=== PATIENT | female | born 1995 | race Caucasian/White ===

== ENCOUNTER 2020-06-12 19:58 | Emergency (ER) | payer BC, SELFPAY ==
--- NOTE | ~2020-06-12 | CT_ITS ---
EXAMINATION: CT BRAIN W/O DATE: 06/12/2020 21:01 INDICATION: Left-sided weakness and sensory deficit TECHNIQUE: Computed tomography (CT) of the head was performed without intravenous contrast. The dose- length product was 529.67 mGy-cm. The mA was adjusted according to patient size. Iterative reconstruc tion technique was employed. COMPARISON: No prior studies for comparison. FINDINGS: Normal brain parenchymal volume for age. Normal amado-white differentiation. No acute intrac ranial hemorrhage, infarction, mass or mass effect. No ventriculomegaly or midline shift. Midline sagittal images demonstrate a normal corpus callosum, c raniovertebral junction and sella turcica. Basilar cisterns are patent. Cerebellar tonsils extend bel ow the foramen magnum, incompletely visualized. Consider Chiari-type 1 malformation. Paranasal sinuses and mastoids are pneumatized. No depressed skull fractures. IMPRESSION: 1. No acute intracranial abnormality. 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 Recommend correlation with MRI. Reviewed, dictated and finalized at location A. ITY ASSURANCE TECH
[2020-06-12 20:00] VITALS: BP 151/115; PULSE 98; RESP 18; TEMP 36.6; O2SAT 98
--- NOTE | 2020-06-12 20:27 | ED.NEUROSD ---
HPI - Neuro Symptoms/Deficit General Chief Complaint: Weakness Stated Complaint: left side numbness Time Seen by Provider: 06/12/20 20:28 Source: patient Mode of arrival: ambulatory Limitations: no limitations History of Present Illness HPI Narrative: previously well 24-year-old woman comes in today complaining of a occipital headache and an episode of left-sided numbness that started after dinner this evening. She states that she felt the numbness 1st in her hand and then in her left arm, leg, side and left side of her face. She states her symptoms have resolved however she feels some heaviness in her left arm. Patient states that she also felt like something was stuck in her throat at dinner and had a itchy rash on her chest afterward. She went home and took a Benadryl as she had had a similar rash and throat symptoms after eating at that restaurant a month ago. She denies any chest pain, shortness of breath, nausea, vomiting, recent illness, neck pain, weakness, or head trauma. She has had no recent drug or alcohol exposure. She has no history of hypertension, seizures, migraines, or CVA. She takes OCPs for control. Onset (ago): hour(s) (1) Location: left face, left arm and left leg History of same: Yes Severity: moderate Quality: numb and other ( resolved) Relieving factors: none Exacerbating factors: none Context: gradual onset Associated symptoms: denies other symptoms Treatments Prior to Arrival: none Related Data Home Medications Medication Instructions Recorded Confirmed No Home Medications 06/12/20 06/12/20 Allergies Allergy/AdvReac Type Severity Reaction Status Date / Time No Known Allergies Allergy Verified 06/12/20 20:18 Review of Systems Constitutional: Constitutional: Denies chills, Denies fever(s) and Denies weakness Eyes: Eyes: Reports change in vision ( blurred vision which has resolved) and Denies photophobia ENT: Denies dysphagia, Denies nasal congestion and Denies sore throat Cardiovascular: Cardiovascular: Denies chest pain and Denies radiating jaw, neck or arm pain Respiratory: Respiratory: Denies cough, Denies dyspnea and Denies wheezing Gastrointestinal: Gastrointestinal: Denies abdominal pain, Denies nausea and Denies vomiting Genitourinary: Genitourinary: Denies nocturia and Denies dysuria Musculoskeletal: Musculoskeletal: Denies arthralgias and Denies joint swelling Integumentary/Breasts: Skin/Breast: Denies pruritus, Denies erythema and Denies rash Neurologic: Denies vertigo, Denies dizziness and Denies syncope Hematologic/Lymphatic: Hematologic/Lymphatic: Denies easy bleeding and Denies easy bruising Allergic/Immunologic: Allergic/Immunologic: Denies lip swelling, Denies throat swelling and Denies tongue swelling [facility] Surgical History Surgical History (Updated 06/12/20 @ 20:52 by Yassine Juarez MD) S/P myringotomy with insertion of tube Social History Social History (Updated 06/12/20 @ 20:53 by Yassine Juarez MD) Smoking status: Never smoker Alcohol intake: current Alcohol use details: occasional Substance use: never Living arrangements: with family Exam Const: General: healthy appearing, no acute distress and alert Orientation/consciousness: patient oriented x3 Limitations: no limitations HENMT: Head: normal to inspection Ears: external ears normal, TM's normal bilaterally and EAC's normal General nose exam: Normal nares present Face and sinus: normal facial exam Mouth: Yes moist mucous membranes Throat: posterior oropharynx normal Eyes: Conjunctivae: conjunctivae normal Pupils: Equal, round and reactive pupils present EOM: EOMs intact bilaterally Neck: Neck: normal visual inspection and no lymphadenopathy Other: No tenderness Resp: Effort & Inspection: normal respiratory effort and not labored Auscultation: clear to auscultation bilaterally, no rales, no rhonchi and no wheezes Cardio: Rate: regular rate Rhythm:
[2020-06-12 20:35] VITALS: PULSE 90
--- NOTE | 2020-06-12 20:40 | ECG_ITS ---
Measurements Intervals [place] Rate: 78 P: 58 DE: 142 QRS: 67 QRSD: 86 T: 48 QT: 363 QTc: 415 Interpretive Statements SINUS RHYTHM NORMAL ECG Electronically Signed On 06-13-2020 6:55:36 APPRENTICESHIP CONSULTANT by Xavier Pollard D.O.
[2020-06-12 20:54] LABS: Basophils Absolute Auto 0.02 K/mm3 (0.00-0.10); Basophils Percent Auto 0.2 % (0.0-1.0); Eosinophils Absolute Auto 0.04 K/mm3 (0.02-0.50); Eosinophils Percent Auto 0.5 % (1.0-6.0); Hematocrit 37.1 % (35.0-49.0); Hemoglobin 12.4 g/dL (12.0-15.0); Immature Granulocyte Absolute 0.02 K/mm3 (0.00-0.00); Immature Granulocyte Percent A 0.2 % (0.0-0.0); Lymphocytes Absolute Auto 1.92 K/mm3 (1.10-4.50); Lymphocytes Percent Auto 23.7 % (18.0-42.0); Mean Corpuscular HGB Conc 33.4 g/dL (32.0-36.0); Mean Corpuscular Hemoglobin 29.3 pg (27.0-31.0); Mean Corpuscular Volume 87.7 fL (78.0-102.0); Monocytes Absolute Auto 0.56 K/mm3 (0.10-0.90); Monocytes Percent Auto 6.9 % (2.0-11.0); Neutrophils Absolute Auto 5.5 K/mm3 (1.7-7.2); Neutrophils Percent Auto 68.5 % (50.0-70.0); Platelet Count Result 241 K/mm3 (150-420); Red Blood Count 4.23 M/mm3 (4.20-5.40); Red Cell Distribution Width 12.3 % (11.6-14.4); White Blood Count 8.1 K/mm3 (4.8-10.8)
[2020-06-12 20:55] LABS: Appearance Urine Clear (Clear); Bilirubin Urine Negative (Negative); Color Urine Yellow (Yellow); Glucose Urine UA Negative (Negative); Ketones Urine Negative (Negative); Leukocyte Esterase Ur Negative (Negative); Nitrate Urine Negative (Negative); Protein Urine Negative (Negative); Urobilinogen Urine 0.2 mg/dL (0.2-1.0); pH Urine 6.5 (5.0-8.0)
[2020-06-12 21:02] LABS: Amphetamine Screen Urine Negative (Negative); Barbiturate Screen Urine Negative (Negative); Benzodiazepines Screen Urine Negative (Negative); Cannabinoid Screen Urine Negative (Negative); Cocaine Screen Urine Negative (Negative); Methadone Screen Urine Negative (Negative); Opiate Screen Urine Negative (Negative); Phencyclidine Screen Urine Negative (Negative)
[2020-06-12 21:03] LABS: Pregnancy On Board Control Positive; Urine Pregnancy Test Negative
[2020-06-12 21:07] LABS: Partial Thromboplastin Time 21.8 SEC (23.90-30.70); Prothrombin Time 10.8 Seconds (9.50-12.10)
[2020-06-12 21:10] LABS: Alanine Aminotransferase 16 U/L (14-59); Albumin Level 3.6 g/dL (3.4-5.0); Alkaline Phosphatase 130 U/L (46-116); Anion Gap 13 mmol/L (8-16); Aspartate Amino Transferase 17 U/L (15-37); Bilirubin,Total 0.2 mg/dL (0.00-1.00); Blood Urea Nitrogen 10 mg/dL (7-18); Calcium 8.9 mg/dL (8.5-10.1); Carbon Dioxide 24 mmol/L (21-32); Chloride 103 mmol/L (98-108); Estimated CRCL calculation 68 ml/min; Estimated Glomerular Filt Rate > 60; Glucose 102 mg/dL (70-99); Osmolality Calculated 289 mOsm/kg (285-295); Potassium 3.5 mmol/L (3.5-5.1); Sodium 140 mmol/L (136-145); Total Protein 6.8 g/dL (6.4-8.2); Troponin I 14.8 ng/L (0.00-60.4)
[2020-06-12 21:11] VITALS: BP 125/88; PULSE 100; RESP 20; O2SAT 100
[2020-06-12 21:11] LABS: Add Urine Microscopic? YES; Bacteria Urine Trace /hpf; Blood Urine Trace (Negative); RBC Urine 0-2 /hpf (0-2); Squamous Epithelial Cell Urine Rare /hpf (Few); WBC Urine 0-3 /hpf (0-3)
[2020-06-12 21:20] VITALS: BP 115/75; PULSE 82; RESP 18; O2SAT 98
== END 2020-06-12 21:29 | disposition home or self-care (01) ==
PROVIDERS: Emergency Provider Emergency Medicine
DX: R20.0 Anesthesia of skin (principal); T78.40XA Allergy, unspecified, initial encounter
CPT/HCPCS: 36415; 70450; 80053; 80307; 81001; 81025; 82948; 84484; 85025; 85610; 85730; 93005; 99283; 99284

== ENCOUNTER 2023-04-08 07:36 | Outpatient (CLI) | payer OTHER, SELFPAY ==
--- NOTE | ~2023-04-08 | XR_ITS ---
EXAMINATION: XR wrist LT 2V DATE: 04/08/2023 07:54 INDICATION: Localized swelling, mass and lump, left wrist. TECHNIQUE: 2 views of left wrist were obtained. COMPARISON: None. FINDINGS: Bone alignment is normal. No fracture. Joint spaces are well maintained. IMPRESSION: 1. Normal left wrist. Reviewed, dictated and finalized at location A. LINE DISPATCHER IMPRESSION: 1. Normal left wrist.
== END 2023-04-08 07:37 | disposition home or self-care (01) ==
PROVIDERS: PCP Nurse Practitioner Adult Health; Visit Provider Nurse Practitioner Adult Health
DX: R22.32 Localized swelling, mass and lump, left upper limb (principal)
CPT/HCPCS: 73100

== ENCOUNTER 2023-07-09 15:41 | Outpatient (CLI) | payer OTHER, SELFPAY ==
[2023-07-09 19:02] LABS: Hematocrit 40.1 % (37.0-47.0); Hemoglobin 12.8 g/dL (12.0-15.0); Mean Corpuscular HGB Conc 31.9 g/dl (32-36); Mean Corpuscular Hemoglobin 29.1 pg (26-34); Mean Corpuscular Volume 91.1 fl (80-100); Mean Platelet Volume 10.5 fl (7.4-10.4); Platelet Count Result 305 k/mm3 (150-375); Red Cell Distribution Width 12.2 % (11.5-14.5); White Blood Count 6.9 K/mm3 (4.5-10.0)
[2023-07-09 19:16] LABS: Alanine Aminotransferase 13 U/L (6-35); Albumin Level 4.1 g/dL (3.5-5.1); Alkaline Phosphatase 130 U/L (38-126); Anion Gap 7 mmol/L (8-16); Aspartate Amino Transferase 26 U/L (14-36); Bilirubin,Total 0.3 mg/dL (0.2-1.3); Blood Urea Nitrogen 11 mg/dL (7-17); Calcium 9.5 mg/dL (8.4-10.2); Carbon Dioxide 25 mmol/L (22-30); Chloride 106 mmol/L (98-107); Estimated Glomerular Filt Rate > 60; Glucose 107 mg/dL (65-110); Potassium 3.9 mmol/L (3.4-5.0); Sodium 138 mmol/L (137-145)
== END 2023-07-09 15:42 | disposition home or self-care (01) ==
PROVIDERS: PCP Nurse Practitioner Adult Health; Visit Provider Nurse Practitioner Adult Health
DX: F41.9 Anxiety disorder, unspecified (principal)
CPT/HCPCS: 36415; 80053; 84443; 85027

== ENCOUNTER 2023-09-12 08:25 | Emergency (ER) | payer OTHER, SELFPAY ==
--- NOTE | 2023-09-12 08:32 | ED.URI ---
HPI - URI/Sore Throat General Chief Complaint: Upper Respiratory Infection Stated Complaint: cough Source: patient Mode of arrival: ambulatory Limitations: no limitations History of Present Illness HPI Narrative: 27 y/o female presented for c/o nonproductive cough x5 days. States the day prior to onset, she felt nasal congestion and drainage which quickly moved to the chest. Denies sob, wheezing, n/v/d/f/c. Taking Mucinex. Related Data Home Medications Medication Instructions Recorded Confirmed Famotidine BYMOUTH 04/02/23 06/25/23 cetirizine 10 mg capsule (All Day 10 mg PO DAILY PRN 04/02/23 06/25/23 Allergy (cetirizine)) desogestrel-e.estradiol 0.15 1 tablet PO DAILY 04/02/23 06/25/23 mg-0.02 mg(21)/e.estrad 0.01 mg(5) tablet (Viorele (28)) Allergies Allergy/AdvReac Type Severity Reaction Status Date / Time No Known Allergies Allergy Verified 04/08/23 16:04 Review of Systems Review of Systems: CONSTITUTIONAL: Denies body aches, fever, chills, or sweats. EYES: Denies visual changes, redness, or discharge. ENT: Reports rhinorrhea, congestion, denies sore throat, or otalgia. CARDIOVASCULAR: Denies chest pain, palpitations, or edema. RESPIRATORY: Reports cough, denies sob, wheezing. GASTROINTESTINAL: Denies abdominal pain, nausea, vomiting, or diarrhea. SKIN: Denies rash, itching, or wounds. MUSCULOSKELETAL: Denies back pain, joint pain, or myalgia. NEUROLOGIC: Denies headache All systems reviewed & are unremarkable except as noted in HPI and below PMFSH Past Medical History Medical History Allergies Chronic GERD Headache Migraine Surgical History Surgical History S/P myringotomy with insertion of tube Family History Family History Grandparent Hypertension Cancer Social History Social History Smoking status: Never smoker Alcohol intake: current Alcohol use details: occasional Substance use: never Lack of Transportation: No Lack of Food: Never True Concerned About Future Housing: No Difficulty Paying Gas/Electric Bills: No Difficulty Paying for Meds: No Currently Unemployed: No Education: High School Diploma/GED Difficulty w/ Childcare or Family Care: No Living arrangements: with family Occupation/Education: occupation Additional occupation/education comments: [employer] Gender identity (if verbalized by the patient): Female Agree to blood products: Yes Comments At time of signature, I have reviewed and agree with nursing past medical, surgical, social and family history unless otherwise noted. Please see nursing chart for further information. There is no relevant family history pertinent to the presenting complaint Exam Narrative: GENERAL: Well-appearing, in no acute distress. EYES: EOMI. No redness or drainage. Conjunctivae normal. ENT: Mucous membranes pink and moist. No rhinorrhea. TMs normal bilaterally. Throat normal. Uvula midline. NECK: Normal AROM. Supple. CHEST: No respiratory distress. Lungs clear to all hernandez. HEART: Regular rate and rhythm. No murmur appreciated. SKIN: Warm, dry, no rash. Capillary refill normal. Normal skin turgor. NEURO: Alert and oriented x3. Gait steady. PSYCH: Normal affect. Course Course Emergency Course: Patient is aware of diagnosis, understands and agrees to treatment plan. Anticipatory guidance given. Patient agrees to follow-up as directed and is aware of reasons to seek care at the emergency department. Portions of this record may have been created with voice recognition software Level of Care: Express Care Visit MDM - URI/Sore Throat MDM Narrative Medical decision making narrative: Discussed physical exam findings. Advised supportive measures
[2023-09-12 08:35] VITALS: BP 155/95; PULSE 101; RESP 18; TEMP 36.4; O2SAT 98
== END 2023-09-12 08:52 | disposition home or self-care (01) ==
PROVIDERS: Emergency Provider Nurse Practitioner Family; PCP Nurse Practitioner Adult Health
DX: B34.9 Viral infection, unspecified (principal); K21.9 Gastro-esophageal reflux disease without esophagitis
CPT/HCPCS: 99213; G0463

== ENCOUNTER 2024-02-10 07:06 | Outpatient (CLI) | payer OTHER, SELFPAY ==
[2024-02-10 08:08] LABS: Basophils Percent Auto 0.9 % (0.2-1.2); Eosinophils Absolute Auto 0.1 K/mm3 (0-0.3); Eosinophils Percent Auto 2.1 % (0-4.4); Hematocrit 39.2 % (37.0-47.0); Immature Granulocyte Absolute 0.01 K/mm3 (0.00-0.031); Immature Granulocyte Percent A 0.2 % (0-0.5); Lymphocytes Absolute Auto 1.95 K/mm3 (0.9-3.2); Lymphocytes Percent Auto 45.5 % (18.3-44.2); Mean Corpuscular HGB Conc 33.2 g/dl (32-36); Mean Corpuscular Hemoglobin 29.9 pg (26-34); Mean Corpuscular Volume 90.1 fl (80-100); Mean Platelet Volume 10.1 fl (7.4-10.4); Monocytes Absolute Auto 0.4 K/mm3 (0.1-0.6); Monocytes Percent Auto 8.6 % (2.6-8.5); Neutrophils Absolute Auto 1.8 K/mm3 (1.3-6.7); Neutrophils Percent Auto 42.7 % (45.5-73.1); Platelet Count Result 297 k/mm3 (150-375); Red Blood Count 4.35 M/mm3 (4.2-5.4); Red Cell Distribution Width 12.2 % (11.5-14.5); White Blood Count 4.3 K/mm3 (4.5-10.0)
[2024-02-10 08:15] LABS: Alanine Aminotransferase 20 U/L (6-35); Albumin Level 4.4 g/dL (3.5-5.1); Alkaline Phosphatase 128 U/L (38-126); Anion Gap 10 mmol/L (4-12); Aspartate Amino Transferase 29 U/L (14-36); Bilirubin,Total 0.5 mg/dL (0.2-1.3); Blood Urea Nitrogen 10 mg/dL (7-17); Calcium 9.4 mg/dL (8.4-10.2); Carbon Dioxide 25 mmol/L (22-30); Chloride 104 mmol/L (98-107); Cholesterol 151 mg/dL (0-200); Estimated Glomerular Filt Rate > 60; Glucose 83 mg/dL (65-110); HDL Direct 34 mg/dL; Sodium 139 mmol/L (137-145); Triglycerides 92 mg/dL (<150)
[2024-02-10 08:25] LABS: Hemoglobin A1C 5.3 % (<5.7)
[2024-02-10 08:27] LABS: LDL Cholesterol Direct 87 mg/dL
[2024-02-10 08:52] LABS: Free T4 Free Thyroxine 0.82 ng/mL (0.78-2.19); Vitamin D 25 Hydroxy 54.3 ng/mL
[2024-02-11 15:49] LABS: Insulin Level Total 7.9 uIU/mL
== END 2024-02-10 07:07 | disposition home or self-care (01) ==
PROVIDERS: PCP Internal Medicine; Visit Provider Internal Medicine
DX: E55.9 Vitamin D deficiency, unspecified (principal); Z13.220 Encounter for screening for lipoid disorders; Z13.29 Encounter for screening for other suspected endocrine disorder; Z79.899 Other long term (current) drug therapy; Z68.29 Body mass index [BMI] 29.0-29.9, adult; Z13.1 Encounter for screening for diabetes mellitus; R63.5 Abnormal weight gain
CPT/HCPCS: 36415; 80053; 80061; 82306; 83036; 83525; 84439; 84443; 84681; 85025

== ENCOUNTER 2024-03-19 06:59 | Outpatient (CLI) | payer OTHER, SELFPAY ==
--- NOTE | ~2024-03-19 | XR_ITS ---
Clinical Indication: Cough PA and lateral views of the chest: Comparison: 06/07/2020 Findings: The lungs are clear, without evidence of focal consolidation or pleural effusion. Cardiome diastinal silhouette is within normal limits. Bones and soft tissues are unremarkable. Impression: Normal chest. Reviewed, dictated and finalized at location . ATRIC SURGEON Impression: Normal chest.
== END 2024-03-19 07:00 | disposition home or self-care (01) ==
PROVIDERS: PCP Internal Medicine; Visit Provider Internal Medicine
DX: R05.9 Cough, unspecified (principal)
CPT/HCPCS: 71046

== ENCOUNTER 2024-04-06 14:58 | Outpatient (CLI) | payer OTHER, SELFPAY ==
[2024-04-06 15:30] LABS: Add Urine Microscopic? YES; Appearance Urine Clear (Clear); Bacteria Urine None Seen /hpf; Bilirubin Urine Negative (Negative); Blood Urine Negative (Negative); Color Urine Yellow (Yellow); Glucose Urine UA Negative (Negative); Ketones Urine Negative (Negative); Leukocyte Esterase Ur Trace LEU/UL (Negative); Need Manual Microscopic Reviewed; Nitrate Urine Negative (Negative); Non Pathogenic Casts 0-2; Protein Urine Negative (Negative); RBC Urine 0-2 /hpf (0-2); Specific Grav Ur 1.003 (1.001-1.035); Squamous Epithelial Cell Urine None Seen /hpf (Few); Urobilinogen Urine 0.2 mg/dL (<2.0); WBC Urine 0-5 /hpf (0-3); pH Urine 7.5 (5.0-9.0)
== END 2024-04-06 14:59 | disposition home or self-care (01) ==
LOC: ANHLAB 14:59
PROVIDERS: PCP Internal Medicine; Visit Provider Internal Medicine
DX: R35.0 Frequency of micturition (principal)
CPT/HCPCS: 81001

== ENCOUNTER 2024-06-29 14:46 | Outpatient (CLI) | payer OTHER, SELFPAY ==
--- OUTSIDE RECORDS SUMMARY | 2024-06-29 14:49 | XMS_ITS | Clinical Summary ---
Author Organization [address] Address [address] [place] [address] Care Team Providers Care Data Entry Representative Name Role Phone Allison Patiño NP Unavailable [phone] Allergies Active Allergy Reactions Criticality Noted Date Comments Food Allergy Formula Hives Medium 06/22/2020 Patient reports allergy to [facility] Medications VIORELE, 28, 0.15-0.02 mgx21 /0.01 mg x 5 per tablet 06/13/2019 Active famotidine (PEPCID) 20 mg tabletIndication s:Non-seasonal allergic rhinitis, unspecified trigger Take 1 tablet (20 mg total) by mouth 2 (two) times a day 180 tablet 3 07/24/2021 Active cetirizine (ZyrTEC) 10 mg tabletIndication s:Non-seasonal allergic rhinitis, unspecified trigger Take 1 tablet (10 mg total) by mouth daily 90 tablet 2 12/06/2022 Active Active Problems Problem Noted Date Diagnosed Date BMI 28.0-28.9,adult 07/30/2022 Assessment & Plan (07/30/2022 7:46 AM CDT): HPI: Condition is stable goal BMI <30 A&P: Healthy, high-protein, lower carbohydrate, lower fat lifestyle and exercise for 150min/week recommended Non-seasonal allergic rhinitis 08/04/2021 Assessment & Plan (08/04/2021 5:03 PM CDT): Stable. Cont. Current prescription medications. Hives 06/22/2020 Assessment & Plan (06/22/2020 4:40 PM INSTALLMENT LOAN COLLECTOR): Advised patient to take cetirizine and famotidine for the next 3-4 weeks. Referred to band log mill and carriage operator for further evaluation and management. Avoid chicken wings at that particular restaurant until seen and evaluated by an band log mill and carriage operator. Go to nearest emergency room should any of the signs and symptoms you experienced surrounding this allergic reaction should return. H/O food allergy 06/22/2020 Immunizations Immunization Administration Dates Next Due DTaP 12/28/2001 IPV 12/28/2001 Influenza, Unspecified 07/30/2022(Deferr ed: Patient Refused),02/10/2020,02/09/2019 MMR 12/28/2001 PPD TEST 01/06/2019 Tdap 09/30/2015 Medical History Medical History Date Comments Hx Other Medical Tube in ears 20 08; Comments: JNS 08/29/2014 - Family History Medical History Relation Name Comments Hypertension Other Family history of Hypertension; Relation Name Status Comments Other Social History Tobacco Use Types Packs/Day Years Used Date Smoking Tobacco: Never Smokeless Tobacco: Never Tobacco Cessation:Counseling Given: Not Answered Alcohol Use Standard Drinks/Week Comments Yes 0 (1 standard drink = 0.6 oz pur e alcohol) AUDIT-C Answer Date Recorded Frequency of Alcohol Consumption Monthly or less 06/21/2019 Average Number of Drinks Not on file 020 Frequency of Binge Drinking Not on file 06/12 PHQ-2 Answer Date Recorded PHQ-2 Total Score (If total score is 3 or more points, staff should administer the PHQ-9) 0 07/30/2022 Comments Unknown Sex and Gender Information Value Date Recorded Sex Assigned at Not on file Legal Sex Female 10:53 AM INSTALLMENT LOAN COLLECTOR Gender Identity Not on file Sexual Orientation Not on file Obstetrics History Last Filed Vital Signs Vital Sign Reading Time Taken Comments Blood Pressure 98/58 07/30/2022 7:29 AM CDT Pulse 76 07/30/2022 7:29 AM CDT Temperature 36.8 C (98.2 F) 07/30/2022 7:29 AM CDT Respiratory Rate 16 07/30/2022 7:29 AM CDT Oxygen Saturation 98% 07/30/2022 7:29 AM CDT Inhaled Oxygen Concentration - - Weight 83.5 kg (184 lb) 07/30/2022 7:29 AM CDT Height 170.2 cm (5' 7 ) 07/30/2022 7:29 AM CDT Body Mass Index 28.82 07/30/2022 7:29 AM CDT Plan of Treatment Health Maintenance Due Date Last Done Comments Hepatitis B Screening 2014 Cervical Cancer Screening 01/11/2020 01/10/2019 Depression Screening 07/31/2023 07/30/2022, 07/24/2021, 07/17/2020, Additional history exists Regular Well Visit/Exam 18-64 07/31/2023 07/30/2022, 07/24/2021, 07/17/2020, Additional history exists Influenza Vaccine (#1) 2024 02/10/2020, 2018 DTaP/Tdap/Td Vaccine (3 - Td or Tdap) 09/29/2025 09/30/2015, 12/28/2001 Hepatitis C Screening Completed 07/22/2020 HPV Vaccines Aged Out No longer eligi ble based on patient's age to complete this topic Pneumococcal vaccine <65 Aged Out No longer eligible based on patient's age to complete this topic Varicella Vaccines Discontinued Procedures Procedure Name Priority Date/Time Associated Diagnosis Comments HEPATITIS C ANTIBODY Routine 07/22/2020 10:35 AM INSTALLMENT LOAN COLLECTOR Encounter for hepatitis C screening test for low risk patient PAP SMEAR WITH HPV Routine 01/10/2019 from Last 3 Months or Most Recently Relevant to Health Maintenance Results * Hepatitis C antibody (07/22/2020 10:35 AM INSTALLMENT LOAN COLLECTOR) Hep C Ab Nonreactive Nonreactive [facility] ([place]) Comment: Interpretive Data Nonreactive: Antibodies to HCV not detected. Does NOT exclude the possibility of recent exposure to HCV. Equivocal: Equivocal for HCV antibodies. Supplemental molecular testing will be automatically performed to determine infection status in accordance with current CDC screening recommendations. Reactive: Positive for HCV antibodies. This may represent current or past HCV infection. Supplemental molecular testing will be automatically performed to determine current infection status in accordance with current CDC screening recommendations. Interpretive data was last revised on 2019. Testing performed by: [facility], [address] [place] [address], [place]., [address] Blood specimen (specimen) 07/22/2020 10:35 AM INSTALLMENT LOAN COLLECTOR 07/22/2020 6:40 PM INSTALLMENT LOAN COLLECTOR Blanca Peterson DO LAB MICROBIOLOGY - GENERAL ORDERABLES Final Result [facility] ([place]) [address] [facility] Department [place] [address] * PAP SMEAR WITH HPV (01/10/2019) Pap smear Normal us Historical Provider HEALTH MAINTENANCE Final Result from Last 3 Months or Most Recently Relevant to Health Maintenance Insurance [employer] [place] [employer] [facility] Member Subscriber Plan / Payer (Ef fective 2020-Present) Name:Carly Doty Relation to Subscriber:Child Name:LAURYN DOTY Date of :1966 (Home) Address: [address] [id number] Payer ID:[id number] (NAIC) Type: ALLIANCE Address: [id number] Care Teams Data Entry Representative Relationship Specialty Start Date End Date Allison Patiño NP [address] [place] [id number] Nurse Practitioner Obstetrics and Gynecology 07/30/22
--- OUTSIDE RECORDS SUMMARY | 2024-06-29 14:49 | XMS_ITS | Referral Summary ---
Author Organization [address] Address [address] [facility] [facility] [address] Care Team Providers Care Service Coordinator Elderly Facility Name Role Phone Allison Patiño NP Unavailable [phone] Allergies Active Allergy Reactions Criticality Noted Date Comments Food Allergy Formula Hives Medium 06/22/2020 Patient reports allergy to [facility] [place] Medications VIORELE, 28, 0.15-0.02 mgx21 /0.01 mg [...] 06/22/2020 Assessment & Plan (06/22/2020 4:40 PM NIGHT CLEANER): Advised patient to take cetirizine and famotidine for the next 3-4 weeks. Referred to pearl fisherman for further evaluation and management. Avoid chicken wings at that particular restaurant until seen and evaluated by an pearl fisherman. Go to nearest emergency room should any of the signs and symptoms you experienced surrounding this allergic reaction should return. H/O food allergy 06/22/2020 Immunizations Immunization Administration Dates Next Due DTaP 12/28/2001 IPV 12/28/2001 Influenza, Unspecified 07/30/2022(Deferr ed: Patient Refused),02/10/2020,02/09/2019 MMR 12/28/2001 PPD TEST 01/06/2019 Tdap 09/30/2015 Social History Tobacco Use Types Packs/Day Years [...] on file Legal Sex Female 10:53 AM NIGHT CLEANER Gender Identity Not on file Sexual Orientation Not on file Last Filed Vital Signs Vital Sign Reading [...] 07/30/2022 7:29 AM CDT Plan of Treatment Not on file Procedures Procedure Name Priority Date/Time Associated Diagnosis Comments HEPATITIS C ANTIBODY Routine 07/22/2020 10:35 AM NIGHT CLEANER Encounter for hepatitis C screening test for low risk patient PAP SMEAR WITH HPV Routine 01/10/2019 from Last 3 Months or Most Recently Relevant to Health Maintenance Results * Hepatitis C antibody (07/22/2020 10:35 AM NIGHT CLEANER) Hep C Ab Nonreactive Nonreactive [facility]IGA [...] last revised on 2019. Testing performed by: [facility], [address] [place] [address]., [id number] Blood specimen (specimen) 07/22/2020 10:35 AM NIGHT CLEANER 07/22/2020 6:40 PM NIGHT CLEANER Blanca Peterson DO LAB MICROBIOLOGY - GENERAL ORDERABLES Final Result [facility] ([place]) [address] [facility] Department [place] [address] * HM PAP SMEAR WITH HPV (01/10/2019) HM Pap smear Normal us Historical Provider HEALTH MAINTENANCE Final Result from Last 3 Months or Most Recently Relevant to Health Maintenance Insurance [employer] [place] [employer] Care Teams Service Coordinator Elderly Facility Relationship Specialty Start Date End Date Allison Patiño NP [address] [place] [id number] Nurse Practitioner Obstetrics and Gynecology 07/30/22
[2024-06-29 15:52] LABS: Free T4 Free Thyroxine 0.94 ng/dL (0.78-2.19)
== END 2024-06-29 14:47 | disposition home or self-care (01) ==
LOC: ANHLAB 14:46
PROVIDERS: PCP Internal Medicine; Visit Provider Internal Medicine
DX: Z79.899 Other long term (current) drug therapy (principal)
CPT/HCPCS: 36415; 84439; 84443

== ENCOUNTER 2024-09-21 15:50 | Outpatient (CLI) | payer OTHER, SELFPAY ==
--- NOTE | ~2024-09-21 | US_ITS ---
Pelvic ultrasound. Clinical History: Pelvic pain Technique: Realtime transabdominal and transvaginal scanning of the pelvis was performed. Color flow Doppler and Doppler spectral analysis were performed. Findings: The uterus is anteverted, and measures 7.0 x 3.2 x 4.1 cm. The endometrial stripe has a th ickness of 6 mm. No focal mass is identified. The right ovary measures 2.4 x 2.3 x 3.2 cm. No significant right ovarian or adnexal mass is seen. The left ovary measures 4.8 x 4.0 x 5.2 cm. Complex left ovarian cyst measures 3.7 cm in maximum diam eter, compatible with hemorrhagic cyst.. There is no evidence of free fluid in the cul de sac. Impression: 3.7 cm hemorrhagic left ovarian cyst. Reviewed, dictated and finalized at [facility]. Impression: 3.7 cm hemorrhagic left ovarian cyst.
== END 2024-09-21 15:51 | disposition home or self-care (01) ==
LOC: MICIMG 15:53
PROVIDERS: PCP Internal Medicine; Visit Provider Nurse Practitioner Women's Health
DX: N83.202 Unspecified ovarian cyst, left side (principal)
CPT/HCPCS: 76830; 76856

== ENCOUNTER 2025-01-17 12:15 | Outpatient (CLI) | payer OTHER, SELFPAY ==
[2025-01-17 13:14] LABS: Hematocrit 35.8 % (37.0-47.0); Hemoglobin 11.8 g/dL (12.0-15.0); Immature Granulocyte Percent A 0.3 % (0-0.5); Lymphocytes Absolute Auto 2.30 K/mm3 (0.9-3.2); Mean Corpuscular HGB Conc 33.0 g/dl (32-36); Mean Corpuscular Hemoglobin 29.9 pg (26-34); Mean Corpuscular Volume 90.6 fl (80-100); Nucleated Red Blood Cells Absolute Auto 0.000 K/mm3 (0.0-0.012); Nucleated Red Blood Cells Perc 0.0 % (0.0-0.2); Platelet Count Result 274 k/mm3 (150-375); Red Blood Count 3.95 M/mm3 (4.2-5.4); White Blood Count 5.7 K/mm3 (4.5-10.0)
[2025-01-17 13:39] LABS: Hemoglobin A1C 5.0 % (<5.7)
[2025-01-17 13:40] LABS: Iron 57 ug/dL (37-170)
[2025-01-17 13:41] LABS: Alanine Aminotransferase 14 U/L (6-35); Albumin Level 4.2 g/dL (3.5-5.1); Alkaline Phosphatase 92 U/L (38-126); Anion Gap 9 mmol/L (4-12); Aspartate Amino Transferase 25 U/L (14-36); Bilirubin,Total 0.3 mg/dL (0.2-1.3); Blood Urea Nitrogen 9 mg/dL (7-17); Calcium 9.1 mg/dL (8.4-10.2); Carbon Dioxide 27 mmol/L (22-30); Chloride 103 mmol/L (98-107); Cholesterol 151 mg/dL (0-200); Estimated Glomerular Filt Rate > 60; Glucose 70 mg/dL (65-110); HDL Direct 34 mg/dL; Potassium 3.9 mmol/L (3.4-5.0); Sodium 139 mmol/L (137-145); Total Protein 7.1 g/dL (6.3-8.2); Triglycerides 193 mg/dL (<150)
[2025-01-17 13:49] LABS: Percent Iron Saturation 16 % (20-50)
[2025-01-17 13:59] LABS: Free T4 Free Thyroxine 1.11 ng/dL (0.78-2.19)
[2025-01-17 14:17] LABS: Thyroid Stimulating Hormone 1.410 uIU/mL (0.465-4.680)
[2025-01-17 14:23] LABS: Ferritin 72.60 ng/mL (6.24-137)
== END 2025-01-17 12:16 | disposition home or self-care (01) ==
LOC: ANHLAB 12:16
PROVIDERS: PCP Internal Medicine; Visit Provider Internal Medicine
DX: G43.909 Migraine, unspecified, not intractable, without status migrainosus (principal); Z79.899 Other long term (current) drug therapy; Z00.00 Encounter for general adult medical examination without abnormal findings; E55.9 Vitamin D deficiency, unspecified; D50.9 Iron deficiency anemia, unspecified
CPT/HCPCS: 36415; 80053; 80061; 82306; 82728; 83036; 83540; 83550; 84439; 84443; 85025

== ENCOUNTER 2025-02-24 07:03 | Day surgery (SDC) | payer OTHER, SELFPAY ==
[2025-02-15 09:42] VITALS: BMI 26.6
--- NOTE | 2025-02-24 06:37 | PM.HPGS ---
History of Present Illness History of Present Illness Chief complaint: Ganglion Cyst Left Dorsal Wrist Narrative: Patient seen and examined in pre-operative holding area. No interval change in medical history or symptoms. Patient recalls previous discussion of benefits and alternatives to procedure. Continues to desire to proceed with left dorsal wrist ganglion cyst excision. Reviewed procedure, post-op expectations and risks including but not limited to bleeding, infection, injury to tendon/nerve/vessel, decreased hand function, stiffness, RSD, no change or worsening of symptoms, recurrence. I discussed the possible use of assistants and their participation in the case. Patient stated understanding and signed the consent form wishing to proceed. Review of Systems Review of Systems: All systems reviewed & are unremarkable except as noted in HPI and below PMFSH Past Medical History Medical History BMI 29.0-29.9,adult Encounter to establish care [facility] drug therapy Migraine Headache Chronic GERD Allergies Surgical History Surgical History S/P myringotomy with insertion of tube Family History Family History Grandparent Hypertension Cancer Mother Hypertension Hyperlipidemia GERD (gastroesophageal reflux disease) Kidney stones Anemia Allergies Father Hypertension GERD (gastroesophageal reflux disease) BORIS (obstructive sleep apnea) Sibling Hyperlipidemia Endometriosis Social History Social History Smoking status: Never smoker Alcohol intake: current Alcohol use details: occasional Substance use: never Lack of Transportation: No Lack of Food: Never True Concerned About Future Housing: No Difficulty Paying Gas/Electric Bills: No Difficulty Paying for Meds: No Currently Unemployed: No Education: High School Diploma/GED Difficulty w/ Childcare or Family Care: No Living arrangements: with family Occupation/Education: occupation Additional occupation/education comments: [employer] Gender identity (if verbalized by the patient): Female Agree to blood products: Yes Meds Home Medications and Allergies Home Medications ?Medication ?Instructions ?Recorded ?Confirmed ?Type fluoxetine 10 mg capsule 10 mg PO DAILY #90 caps 05/18/24 02/24/25 Rx desogestrel-e.estradiol 0.15 1 tablet PO DAILY #84 tabs 12/09/24 02/24/25 Rx mg-0.02 mg(21)/e.estrad 0.01 mg(5) tablet (Viorele (28)) fluticasone propionate 50 See Rx Instructions .Route 12/14/24 02/24/25 Rx mcg/actuation nasal .COMPLEX #48 grams spray,suspension epinephrine 0.3 mg/0.3 mL 0.3 ml IM ONCE #1 ea 12/21/24 02/24/25 Rx injection, auto-injector (EpiPen) cetirizine 10 mg tablet 10 mg PO DAILY 02/15/25 02/24/25 History famotidine 20 mg tablet 20 mg PO DAILY PRN acid reflux 02/15/25 02/24/25 History multivitamin (Daily Multi-Vitamin 1 tablet PO DAILY 02/15/25 02/24/25 History tablet) tramadol 50 mg tablet 50 mg PO Q6H PRN pain #12 tabs 02/24/25 Rx Allergies Allergy/AdvReac Type Severity Reaction Status Date / Time latex Allergy Intermediate Hives Verified 02/24/25 07:30 [employer] [employer] AdvReac Intermediate Hives Uncoded 01/04/25 14:46 Exam Narrative: unchanged Assessment and Plan Assessment and plan (1) Ganglion cyst of dorsum of left wrist: Code(s): M67.432 - Ganglion, left wrist Status: Acute Assessment and Plan: cont as above
--- NOTE | 2025-02-24 06:38 | P.OP_ITS ---
Procedure Note - Detailed Date of Procedure 02/24/25 Pre-op Diagnosis Ganglion Cyst Left Dorsal Wrist Post-op Diagnosis Same Procedure Performed left dorsal wrist ganglion excision Surgeon Nabil Willoughby MD Relief Worker Zack Lima PA-C Anesthesia MAC Description of Procedure INFORMED CONSENT: The patient was seen and examined and marked in the pre-op area.? The patient signed the consent form. PROCEDURE IN DETAIL:The patient taken back to OR on the stretcher in supine position. Time out performed with anesthesia, surgeon and staff agreeing on patient's name site and surgery to be performed SCDs were placed on the lower extremities and inflated. A tourniquet was placed on {left} upper extremity and antibiotics given IV After anesthesia administered sedation I injected {5}cc 1%lido with epi and 0.5% marcaine plain at the operative site The?{left upper extremity}?was prepped and draped in sterile fashion the??{left upper extremity} was? exsanguinated with Esmarch bandage proximal to mass and tourniquet inflated to 250mmHg I proceeded with making a longitudinal incision over the left dorsal wrist mass through skin and dermis with 15 blade scalpel. Littler scissors were used to spread through subcutaneous tissue down to the extensor retinaculum. I made an incision in the extensor retinaculum and proceeded with dissecting down toward the joint capsule. Identified the cystic mass coming off the dorsal wrist capsule. This mass was resected from the dorsal wrist capsule with 15 blade scalpel. Bipolar cautery was used to cauterize the base of the mass and capsular edges. I irrigated with normal saline. I repaired the capsular defect with 3-0 Vicryl suture. 3-0 Vicryl was used to close dermis and 4-0 Monocryl was used for subcuticular closure. A dressing of Dermabond, 4x4, lynne, and a volar splint was applied for patient safety, security, and comfort and secured with an dawna bandage after the tourniquet was let down noting the hand was warm and well perfused. The patient was then awaken from anesthesia and transferred to the recovery room in stable condition.? Complications - none EBL- 0cc Disposition - home in stable condition Zack Lima PA-C was essential for positioning, retraction, closure and dressing placement. [facility] [place] - Charge Forward: Surgery Billing ([id number] for zack)
--- OUTSIDE RECORDS SUMMARY | 2025-02-24 07:17 | XMS_ITS | Clinical Summary ---
Author Organization [address] Address [address] [place] [facility] [place] [address] Care Team Providers Care Lan Specialist Name Role Phone Allison Patiño NP Unavailable Allergies Active Allergy Reactions Criticality Noted Date Comments Food Allergy Formula Hives Medium 06/22/2020 Patient reports allergy to [employer] Medications VIORELE, 28, 0.15-0.02 mgx21 /0.01 mg [...] 06/22/2020 Assessment & Plan (06/22/2020 4:40 PM PAINTER CHASSIS): Advised patient to take cetirizine and famotidine for the next 3-4 weeks. Referred to carpet sewer for further evaluation and management. Avoid chicken wings at that particular restaurant until seen and evaluated by an carpet sewer. Go to nearest emergency room should any [...] on file Legal Sex Female 10:53 AM PAINTER CHASSIS Gender Identity Not on file Sexual Orientation [...] 7:29 AM CDT Height 170.2 cm (5' 7) 07/30/2022 7:29 AM CDT Body Mass Index 28.82 07/30/2022 7:29 AM CDT Plan of Treatment Health Maintenance Due Date Last Done Comments Hepatitis B Screening 2014 Cervical Cancer Screening 01/11/2020 01/10/2019 Depression Screening 07/31/2023 07/30/2022, 07/24/2021, 07/17/2020, Additional history exists Regular Well Visit/Exam 18-64 07/31/2023 07/30/2022, 07/24/2021, 07/17/2020, Additional history exists HPV Vaccines (1 - 3-dose SCDM series) 10/13/2023 Influenza Vaccine (#1) 2025 02/10/2020, 2018 DTaP/Tdap/Td Vaccine (3 - Td or Tdap) 09/29/2025 09/30/2015, 12/28/2001 Hepatitis C Screening Completed 07/22/2020 Pneumococcal vaccine <65 Aged Out No longer eligible based on patient's age to complete this topic Varicella Vaccines Discontinued Procedures Procedure Name Priority Date/Time Associated Diagnosis Comments HEPATITIS C ANTIBODY Routine 07/22/2020 10:35 AM PAINTER CHASSIS Encounter for hepatitis C screening test for low risk patient PAP SMEAR WITH HPV Routine 01/10/2019 from Last 3 Months or Most Recently Relevant to Health Maintenance Results * Hepatitis C antibody (07/22/2020 10:35 AM PAINTER CHASSIS) Hep C Ab Nonreactive Nonreactive MELITA ZUNIGA [...] last revised on 2019. Testing performed by: [facility], [address] [place] [address], [place]., [address] Blood specimen (specimen) 07/22/2020 10:35 AM PAINTER CHASSIS 07/22/2020 6:40 PM PAINTER CHASSIS Blanca Peterson DO LAB MICROBIOLOGY - GENERAL ORDERABLES Final Result [facility] ([place]) 1 [facility] Department of Laboratories [place] [id number] * PAP SMEAR WITH HPV (01/10/2019) Pap smear Normal us Historical Provider MD HEALTH MAINTENANCE Final Result from Last 3 Months or Most Recently Relevant to Health Maintenance Insurance [employer] [facility] [place] [address] Care Teams Lan Specialist Relationship Specialty Start Date End Date Allison Patiño NP [address] [place] [phone] Nurse Practitioner Obstetrics and Gynecology 07/30/22
[2025-02-24 07:43] VITALS: BP 127/80; PULSE 82; RESP 16; TEMP 37; O2SAT 99; BMI 26.1
--- NOTE | 2025-02-24 07:45 | WPDANESEPPF ---
Anes - Initial Pre Proc Eval Procedure: Operation Date: 02/24/25 08:45 Proposed Procedures p Excision Ganglion Cyst Left Dorsal Wrist - Nabil Willoughby MD Date/Time: 02/24/25 07:45 Surgeon: Nabil Willoughby MD Pre Op Diagnosis: Ganglion Cyst Left Dorsal Wrist Patient Data Age: 29 Gender: F Height: 1.68 m Weight: 74.9 kg Allergies Allergy/AdvReac Type Severity Reaction Status Date / Time latex Allergy Intermediate Hives Verified 02/24/25 07:30 [place] [employer] AdvReac Intermediate Hives Uncoded 01/04/25 14:46 Home Medications ?Medication ?Instructions ?Recorded ?Confirmed ?Type fluoxetine 10 mg capsule 10 mg PO DAILY #90 caps 05/18/24 02/24/25 Rx desogestrel-e.estradiol 0.15 1 tablet PO DAILY #84 tabs 12/09/24 02/24/25 Rx mg-0.02 mg(21)/e.estrad 0.01 mg(5) tablet (Viorele (28)) fluticasone propionate 50 See Rx Instructions .Route 12/14/24 02/24/25 Rx mcg/actuation nasal .COMPLEX #48 grams spray,suspension epinephrine 0.3 mg/0.3 mL 0.3 ml IM ONCE #1 ea 12/21/24 02/24/25 Rx injection, auto-injector (EpiPen) cetirizine 10 mg tablet 10 mg PO DAILY 02/15/25 02/24/25 History famotidine 20 mg tablet 20 mg PO DAILY PRN acid reflux 02/15/25 02/24/25 History multivitamin (Daily Multi-Vitamin 1 tablet PO DAILY 02/15/25 02/24/25 History tablet) tramadol 50 mg tablet 50 mg PO Q6H PRN pain #12 tabs 02/24/25 Rx Patient hx anesthesia problems: none Family hx anesthesia problems: none Results Review: All pre-operative results and documents have been reviewed as part of the pre-operative evaluation. [facility] Past Medical History Medical History BMI 29.0-29.9,adult Encounter to establish care On usp drug therapy Migraine Headache Chronic GERD Allergies Surgical History Surgical History S/P myringotomy with insertion of tube Family History Family History Grandparent Hypertension Cancer Mother Hypertension Hyperlipidemia GERD (gastroesophageal reflux disease) Kidney stones Anemia Allergies Father Hypertension GERD (gastroesophageal reflux disease) BORIS (obstructive sleep apnea) Sibling Hyperlipidemia Endometriosis Social History Social History Smoking status: Never smoker Alcohol intake: current Alcohol use details: occasional Substance use: never Lack of Transportation: No Lack of Food: Never True Concerned About Future Housing: No Difficulty Paying Gas/Electric Bills: No Difficulty Paying for Meds: No Currently Unemployed: No Education: High School Diploma/GED Difficulty w/ Childcare or Family Care: No Living arrangements: with family Occupation/Education: occupation Additional occupation/education comments: [employer] Gender identity (if verbalized by the patient): Female Agree to blood products: Yes Anes - Eval Final PreProcedure Day of Procedure 02/24/25 07:45 Heart: regular rate and rhythm Lungs: clear to auscultation Airway: Mallampati scale class II Neurological: alert and oriented Last oral intake: >/= 8 hours ASA classification: II Anesthetic plan: proceed Anesthesia type and monitoring: monitored anesthesia care Results Review: All pre-operative results and documents have been reviewed as part of the pre-operative evaluation. Informed Consent: The patient's anesthetic plan and its attendant risks and benefits were discussed with the patient/family/POA. Questions were solicited and answers provided to the satisfaction of the patient/family/POA.
[2025-02-24] MEDS: LACTATED RINGERS 1,000 ML 30 ML IV CONT (08:08)
[2025-02-24] MEDS: ACETAMINOPHEN 500 MG TABLET 1000 MG PO (08:09)
[2025-02-24] MEDS: ceFAZolin SODIUM 2 GM/20 ML SW SYRINGE IV PUSH (08:29)
--- NOTE | 2025-02-24 08:38 | WPDANESPN ---
Anes - Prog Note Post-Op Date/Time: 02/24/25 08:38 Vital Signs: Last Vital Signs Temp 98.6 F 02/24/25 07:43 Pulse 82 02/24/25 07:43 Resp 16 02/24/25 07:43 BP 127/80 02/24/25 07:43 Pulse Ox 99 02/24/25 07:43 O2 Del Method Room Air 02/24/25 07:43 Pain Score (VAS): no Patient Feedback: Patient satisfied with anesthetic care.
[2025-02-24] MEDS: BUPivacaine HCL 0.5% 10 ML AMP INFILTRATE (08:42)
[2025-02-24] MEDS: LIDO 1%/EPINEPHRINE 1:100,000 20 ML VIAL 10 ML INFILTRATE (08:42)
[2025-02-24 08:54] VITALS: BP 103/67; PULSE 82; RESP 14; O2SAT 100
[2025-02-24 09:20] VITALS: BP 100/63; PULSE 92; RESP 16; O2SAT 100
== END 2025-02-24 09:25 | disposition home or self-care (01) ==
LOC: ASC 07:15
PROVIDERS: PCP Internal Medicine; Visit Provider Plastic Surgery
PROC: (CPT 25111; principal; 2025-02-24 08:45)
DX: M67.432 Ganglion, left wrist (principal)
CPT/HCPCS: 25111

== ENCOUNTER 2025-02-24 13:16 | Outpatient (NON) | payer OTHER, SELFPAY ==
--- NOTE | 2025-02-24 | S_PTH ---
PATIENT: Carly Perez LOC: [facility] U#:[id number] AGE/SX: 29/F ROOM: RE02/24/[address]: Nabil Willoughby MD : [id number] BED: DIS: 02/24/2025 SPEC #: [id number] RECD: 02/25/25 13:43 STATUS: ANABEL REQ #: [id number] PALMA: 02/24/25 00:[address]: Nabil Willoughby DEPT: [facility] Surgical RECD BY: Ling Lin ENTERED: 02/25/25 13:44 SP TYPE: Surgical OTHR DR: Anuj Curiel MD Tissues: A - Cyst Procedures: Hematoxylin and Eosin Stain Gross and Microscopic Level 4
--- OUTSIDE RECORDS SUMMARY | 2025-02-25 13:22 | XMS_ITS | Clinical Summary ---
Author Organization [address] Address [address] [place] [facility] [place] [address] Care Team Providers Care Cabin Crew Name Role Phone Allison Patiño NP Unavailable [phone] Allergies Active Allergy Reactions Criticality Noted Date Comments Food Allergy Formula Hives Medium 06/22/2020 Patient reports allergy to [employer] Medications VIORELE, 28, 0.15-0.02 mgx21 /0.01 mg [...] 06/22/2020 Assessment & Plan (06/22/2020 4:40 PM LANCE CREWMEMBER/MLRS SERGEANT): Advised patient to take cetirizine and famotidine for the next 3-4 weeks. Referred to science and operations officer for further evaluation and management. Avoid chicken wings at that particular restaurant until seen and evaluated by an science and operations officer. Go to nearest emergency room should any [...] on file Legal Sex Female 10:53 AM LANCE CREWMEMBER/MLRS SERGEANT Gender Identity Not on file Sexual Orientation [...] HEPATITIS C ANTIBODY Routine 07/22/2020 10:35 AM LANCE CREWMEMBER/MLRS SERGEANT Encounter for hepatitis C screening test for low risk patient PAP SMEAR WITH HPV Routine 01/10/2019 from Last 3 Months or Most Recently Relevant to Health Maintenance Results * Hepatitis C antibody (07/22/2020 10:35 AM LANCE CREWMEMBER/MLRS SERGEANT) Hep C Ab Nonreactive Nonreactive MELITA ZUNIGA [...] last revised on 2019. Testing performed by: [facility], [address] [place] [address], [place] [address] Blood specimen (specimen) 07/22/2020 10:35 AM LANCE CREWMEMBER/MLRS SERGEANT 07/22/2020 6:40 PM LANCE CREWMEMBER/MLRS SERGEANT Blanca Peterson DO LAB MICROBIOLOGY - GENERAL ORDERABLES Final Result [facility] ([place]) 1 [facility] Department of Laboratories [place] [id number] * PAP SMEAR WITH HPV (01/10/2019) Pap smear Normal us Historical Provider MD HEALTH MAINTENANCE Final Result from Last 3 Months or Most Recently Relevant to Health Maintenance Insurance [employer] [place] [facility] [place] [address] Care Teams Cabin Crew Relationship Specialty Start Date End Date Allison Patiño NP [address] [place] [id number] Nurse Practitioner Obstetrics and Gynecology 07/30/22
== END 2025-02-24 13:17 | disposition home or self-care (01) ==
PROVIDERS: PCP Internal Medicine; Visit Provider Plastic Surgery
DX: M67.432 Ganglion, left wrist (principal)
CPT/HCPCS: 88305

== ENCOUNTER 2025-04-14 13:19 | Outpatient (CLI) | payer OTHER, SELFPAY ==
[2025-04-14 13:40] LABS: Add Urine Microscopic? YES; Appearance Urine Cloudy (Clear); Glucose Urine UA Negative (Negative); Leukocyte Esterase Ur 1+ LEU/UL (Negative); Need Manual Microscopic Reviewed; Nitrate Urine Negative (Negative); Non Pathogenic Casts 0-2; Specific Grav Ur 1.009 (1.001-1.035)
== END 2025-04-14 13:20 | disposition home or self-care (01) ==
LOC: ANHLAB 13:19
PROVIDERS: PCP Internal Medicine; Visit Provider Internal Medicine
DX: R39.9 Unspecified symptoms and signs involving the genitourinary system (principal)
CPT/HCPCS: 81001; 87086; 87147; 87186